=== PATIENT | female | born 1980 | race Two or more races ===

== ENCOUNTER 2020-08-19 12:08 | Emergency (ER) | payer OTHER ==
[~2020-08-19] VITALS: Ht 160 cm; Wt 90.9 kg
[2020-08-19 13:42] LABS: BILIRUBIN,URINE NEGATIVE (NEG); CLARITY,URINE CLEAR; COLOR,URINE YELLOW; NITRITE,URINE NEGATIVE (NEG); PROTEIN,URINE NEGATIVE (NEG-TRACE); UROBILINOGEN,URINE 0.2 mg/dL (0.2 mg/dL)
[2020-08-19] MEDS: HYDROcodone/APAP 5/325MG 1 TAB TABLET PO ONE (13:52)
[2020-08-19 14:01] LABS: RBC,URINE 0 /HPF (0-2); WBC,URINE RARE /HPF (0-4)
[2020-08-19 14:02] LABS: BACTERIA,URINE 0 /HPF (0-FEW)
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
[2020-08-19 15:06] VITALS: BP 116/60
== END 2020-08-19 15:00 | disposition home or self-care (01) ==
LOC: ER 12:08
DX: S13.4XXA Sprain of ligaments of cervical spine, initial encounter (principal); S09.8XXA Other specified injuries of head, initial encounter; M54.2 Cervicalgia; R53.1 Weakness; J45.909 Unspecified asthma, uncomplicated; E11.9 Type 2 diabetes mellitus without complications; Z98.890 Other specified postprocedural states; Z90.710 Acquired absence of both cervix and uterus; Z87.891 Personal history of nicotine dependence; Z88.0 Allergy status to penicillin; Z88.8 Allergy status to other drugs, medicaments and biological substances; V98.8XXA Other specified transport accidents, initial encounter; Y93.89 Activity, other specified; Y92.89 Other specified places as the place of occurrence of the external cause; Y99.8 Other external cause status
CPT/HCPCS: 70450; 72125; 81001; 81025; 99285